=== PATIENT | male | born 1985 | race Caucasian/White ===

== ENCOUNTER 2019-01-29 09:59 | Emergency (ER) | payer OTHER ==
[~2019-01-29] VITALS: Ht 182.9 cm; Wt 72.6 kg
[2019-01-29] MEDS ORDERED: ULTRAM50 MG PO (10:25)
[2019-01-29] MEDS ORDERED: CYCLOBENZAPRINE10 MG PO (10:25)
--- OUTSIDE RECORDS SUMMARY | 2019-01-29 11:08 | XMS ---
PreManage Notification: KRISTOFER ANDERSON Security Geophysical Engineer Events No recent Security Events currently on file CRITERIA MET - [facility] - 2 Visits in 30 Days CARE PROVIDERS [place] [place] Family Medicine: Sports Medicine Current PHONE: [phone] Estrada has no Care Guidelines for this patient. EGisselle VISIT COUNT (12 MO.) 3 [facility] Paige Tellez [address] [place] [address] TOTAL 4 NOTE: Visits indicate total known visits. ED/UCC VISIT TRACKING (12 MO.) 01/29/2019 10:01 LIUDMILA Hernandez TYPE: Emergency COMPLAINT: - BACK AND RIB PAIN, INJ [facility]2019 07[facility] DIAGNOSES: - Low Back Pain - Other disorders of calcium metabolism - Fracture of one rib, left side, initial encounter for closed fracture - Back Pain - Other disorders of kidney and ureter in diseases classified elsewhere 10/21/2018 00:16 [facility] DIAGNOSES: - Pain in thoracic spine - back pain 08/01/2018 13:14 [place]: [place] DIAGNOSES: - back, rib pain - Chondrocostal junction syndrome [Tietze] - Rib Pain INPATIENT VISIT TRACKING (12 MO.) No inpatient visits to display in this time frame [id number]
== END 2019-01-29 10:40 | disposition home or self-care (01) ==
LOC: ED 09:59
DX: S22.32XA Fracture of one rib, left side, initial encounter for closed fracture (principal); W18.30XA Fall on same level, unspecified, initial encounter
CPT/HCPCS: 99283; 99406